=== PATIENT | female | born 1955 | race Hispanic/Latino ===

== ENCOUNTER 2021-10-17 07:36 | Day surgery (SDC) | payer OTHER ==
[~2021-10-17] VITALS: Ht 162.6 cm; Wt 97.8 kg
[2021-10-17] VITALS (9 sets, daily range): BP systolic 116–151; BP diastolic 45–68
[~2021-10-17 07:36] MED LIST: 0.9%NACL 1000ML 1,000 ML IV ONE; GABA-529 PO; LEVO25TA54 PO; METF-444 PO; MONT-39 PO; OMEP40CA21 PO; OXYB10TA30 PO; PYRI100T10 PO; SIME125T62 PO; SUCR1TAB2 PO; TRAVASTATIN PO
[2021-10-17] MEDS ORDERED: PROPOFOL 10 MG/ML 20ML VIAL IV ONE (09:22)
== END 2021-10-17 10:20 | disposition home or self-care (01) ==
LOC: DAH 07:36 → ENDO 07:36
PROVIDERS: ATTEND Internal Medicine Gastroenterology
DX: R93.2 Abnormal findings on diagnostic imaging of liver and biliary tract (principal); K80.50 Calculus of bile duct without cholangitis or cholecystitis without obstruction; R10.13 Epigastric pain; E78.00 Pure hypercholesterolemia, unspecified; E03.9 Hypothyroidism, unspecified; E11.9 Type 2 diabetes mellitus without complications; E66.01 Morbid (severe) obesity due to excess calories; Z68.37 Body mass index [BMI] 37.0-37.9, adult; Z90.710 Acquired absence of both cervix and uterus; Z98.51 Tubal ligation status; Z79.84 Long term (current) use of oral hypoglycemic drugs; Z79.899 Other long term (current) drug therapy; Z90.49 Acquired absence of other specified parts of digestive tract
CPT/HCPCS: 43259; 82948 ×2; 87635; A4215 ×2; A4221; A4222; A4223; A4606; A4620; A4657; A4663; C9803; J2704; J7030

== ENCOUNTER 2021-10-24 08:42 | Day surgery (SDC) | payer OTHER ==
[2021-10-24] VITALS (18 sets, daily range): BP systolic 129–167; BP diastolic 60–94
[~2021-10-24] VITALS: Ht 162.6 cm; Wt 97.4 kg
[2021-10-24] MEDS ORDERED: IOHEXOL-350 50ML VIAL IV ONE (08:43)
[2021-10-24] MEDS ORDERED: PROPOFOL 10 MG/ML 20ML VIAL IV ONE (10:32)
== END 2021-10-24 13:15 | disposition home or self-care (01) ==
LOC: DAH 08:42 → ENDO 08:42 → EDSTATUS 11:13 → ENDO 13:15
PROVIDERS: ATTEND Internal Medicine Gastroenterology
DX: R93.2 Abnormal findings on diagnostic imaging of liver and biliary tract (principal); K80.50 Calculus of bile duct without cholangitis or cholecystitis without obstruction; R10.13 Epigastric pain; E11.9 Type 2 diabetes mellitus without complications; E03.9 Hypothyroidism, unspecified; E78.00 Pure hypercholesterolemia, unspecified; Z79.84 Long term (current) use of oral hypoglycemic drugs; Z79.899 Other long term (current) drug therapy; Z90.49 Acquired absence of other specified parts of digestive tract; Z90.710 Acquired absence of both cervix and uterus; Z20.822 Contact with and (suspected) exposure to COVID-19
CPT/HCPCS: 43262; 43264; 74328; 82948 ×3; 87635; 93005; A4215 ×2; A4221; A4222; A4223; A4606; A4657 ×2; A4663; C1769; C1773; C9803; J2704; J7030; Q9967; 74330